=== PATIENT | male | born 1985 | race Caucasian/White ===

== ENCOUNTER 2020-04-03 16:07 | Outpatient (CLI) | payer BC, OTHER ==
--- NOTE | 2020-04-03 16:45 | XRAY Report ---
PROCEDURE: Knee 2 View RT INDICATIONS: R KNEE PAIN TECHNIQUE: 2 views of the right knee(s) were acquired. COMPARISON: None. FINDINGS: Bones: No fractures or dislocations. No suspicious bony lesions. Soft tissues: No joint effusion. No suspicious soft tissue calcifications. IMPRESSION: No right knee fracture or dislocation. No finding to explain patient's symptoms. Reviewed by: Dawit Griffin MD on 04/03/2020 4:44 PM PDT Approved by: Dawit Griffin MD on 04/03/2020 4:44 PM PDT Station ID: [id number]
== END 2020-04-03 23:59 | disposition home or self-care (01) ==
LOC: DI.WCP 16:07
PROVIDERS: ATTEND Family Medicine
DX: M25.561 Pain in right knee (principal)

== ENCOUNTER 2020-04-11 09:52 | Emergency (ER) | payer BC ==
--- NOTE | 2020-04-11 10:59 | ED Physician Documentation ---
PD HPI LOWER EXT INJURY - Stated complaint Stated Complaint: R LEG PX - Chief complaint Chief Complaint: Ext Problem - History obtained from History obtained from: Patient - History of Present Illness PD HPI LOW EXT INJURY LOCATION: Right, Knee Type of injury: Twist. No: Fall Timing - onset: How many weeks ago (2) Timing - duration: Weeks (2) Timing - details: Abrupt onset (he has had problem with knee at times for years, but has had consistent pain right knee after twisting some couple weeks ago. Has had pain with popping, clicking and some giving out. No locking up. Has swelling often at end of work day, improved with wrap. Pain mostly with squatting and twist/pivot) Improved by: Rest Worsened by: Moving. No: Palpating Associated symptoms: Swelling. No: Weakness, Numbness Contributing factors: No: Anticoagulated Similar symptoms before: No: Has not had sx before Recently seen: Clinic (seen by PMD Dr. Garza with xrays and told to use OTC brace and NSAIDs. Referring for PT.) Review of Systems Constitutional: denies: Fever Nose: denies: Rhinorrhea / runny nose, Congestion Throat: denies: Sore throat Respiratory: denies: Cough Skin: denies: Rash, Lesions Neurologic: denies: Focal weakness, Numbness PD PAST MEDICAL HISTORY - Past Medical History Past Medical History: No - Present Medications Home Medications: Ambulatory Orders Medication Instructions Recorded Confirmed Hydrocodone/Acetaminophen 1 each PO Q6H PRN #15 tablet 04/11/20 [Hydrocodone-Acetamin 5-325 mg] Meloxicam [Mobic] 7.5 mg PO BID PRN #20 tablet 04/11/20 - Allergies Allergies/Adverse Reactions: Allergies Allergy/AdvReac Type Severity Reaction Status Date / Time No Known Drug Allergies Allergy Verified 04/11/20 10:24 - Social History Does the pt smoke?: No Smoking Status: Never smoker PD ED PE NORMAL - Vitals Vital signs reviewed: Yes - General General: Alert and oriented X 3, No acute distress, Well developed/nourished - Derm Derm: Normal color, Warm and dry, No rash - Extremities Extremities: Other (right knee with some tenderness and fine crepitance at suprapatellar area perhaps c/w some tendonitis. However, most pain is with impaction/torsion testing c/w meniscal. Cruciate and collateral testing without pain nor laxity. No effusion right now. ) - Neuro Neuro: Alert and oriented X 3, No motor deficit, No sensory deficit Results - Vitals Vitals: Vital Signs - 24 hr 04/11/20 04/11/20 10:16 11:36 Temperature 36.6 C 36.5 C Heart Rate 68 80 Respiratory 16 19 Rate Blood Pressure 148/74 H 167/98 H O2 Saturation 100 100 Oxygen O2 Source Room air PD MEDICAL DECISION MAKING - ED course Complexity details: considered differential (seems likely meniscal process tram nly, with possibly some patellar tendonitis. Had xrays in office, reported normal by patient, so did not see reason for repeat. ), d/w patient Departure - Departure Disposition: Home, Self Care Clinical Impression: Right knee pain Qualifiers: Chronicity: acute Qualified Code(s): M25.561 - Pain in right knee Acute meniscal injury of right knee Qualifiers: Encounter type: initial encounter Qualified Code(s): S83.8X1A - Sprain of other specified parts of right knee, initial encounter Condition: Stable Record reviewed to determine appropriate education?: Yes Instructions: ED Meniscal Injury Knee Poss Follow-Up: Victor M Naranjo MD [Provider Admit Priv/Credential] - Prescriptions: Hydrocodone/Acetaminophen [Hydrocodone-Acetamin 5-325 mg] 1 each PO Q6H PRN #15 tablet PRN Reason: Pain Meloxicam [Mobic] 7.5 mg PO BID PRN #20 tablet PRN Reason: Pain Comments: Your symptoms sound likely to be a meniscal problem with likely some loose pieces or partial tear. There may be some element of patellar tendinitis as well. Use the hinged knee brace set to 0-60 to guard the full range of motion and provide less torsional movement. Activity as tolerated. We can try different anti-inflammatory with the Mobic. To that add Tylenol or hydrocodone as needed for worse pain. Follow-up with orthopedics for further evaluation and examination. They may want to get further imaging such as MRI or may have adequate diagnosis/plan just with exam. Discharge Date/Time: 04/11/20 11:43
[2020-04-11] MEDS ORDERED: HYDROcod/ACETAM 5/325 MG TABLET PO STA (11:19)
[2020-04-11 11:36] VITALS: BP 167/98
== END 2020-04-11 11:43 | disposition home or self-care (01) ==
LOC: ED 09:52
DX: S83.8X1A Sprain of other specified parts of right knee, initial encounter (principal); X50.1XXA Overexertion from prolonged static or awkward postures, initial encounter
CPT/HCPCS: 99282; 99283; A9270

== ENCOUNTER 2020-06-01 17:13 | Outpatient (CLI) | payer BC | END 2020-06-01 17:14 | disposition home or self-care (01) | LOC: COV 17:13 | PROVIDERS: ATTEND Family Medicine | DX: Z20.828 Contact with and (suspected) exposure to other viral communicable diseases (principal) ==